=== PATIENT | female | born 1965 | race Caucasian/White ===

== ENCOUNTER 2019-10-11 09:44 | Inpatient (IN) | payer OTHER ==
[2019-10-11] MEDS ORDERED: Fentanyl 100 MCG/2 ML VIAL ONE ×2 (10:29→12:48)
[2019-10-11] MEDS ORDERED: Midazolam HCl 2 mg/2 ml Vial ONE (10:29)
[2019-10-11] MEDS ORDERED: Lidocaine 1% (PF) 30 ML VIAL ONE (10:29)
[2019-10-11] MEDS ORDERED: HYDROcodone/Acetaminophen 10/325 mg Tablet PO PRN ×2 (11:57)
[2019-10-11] MEDS ORDERED: traMADol HCl 50 MG TAB PO PRN ×3 (11:57→13:01)
[2019-10-11] MEDS ORDERED: Promethazine HCl 25 MG/ML VIAL IM PRN ×3 (11:57→16:55)
[2019-10-11] MEDS ORDERED: Zolpidem Tartrate 5 MG TAB PO PRN (11:57)
[2019-10-11] MEDS ORDERED: Ketorolac Tromethamine 30 MG/ML VIAL IVP PRN (11:57)
[2019-10-11] MEDS ORDERED: Ropivacaine 0.2% 550 ML 550 ML NERVE BLCK SCH (11:57)
[2019-10-11] MEDS ORDERED: Ondansetron PF 4 MG/2 ML Vial IVP PRN (11:57)
[2019-10-11] MEDS ORDERED: Acetaminophen 325 MG TAB PO PRN (11:57)
[2019-10-11] MEDS ORDERED: Fentanyl 100 MCG/2 ML VIAL IV PRN (11:58)
[2019-10-11] MEDS ORDERED: Bupivacaine PF 0.5% 30 ML VIAL ONE (12:16)
[2019-10-11] MEDS ORDERED: Betamet Acet/Betamet Na Ph 30 MG/5 ML VIAL ONE (12:16)
[2019-10-11] MEDS ORDERED: Bacitracin Zinc Ointment 30 gm TUBE ONE (12:16)
[2019-10-11] MEDS ORDERED: HYDROcodone/Acetaminophen 5/325 mg Tablet PO PRN (13:01)
[2019-10-11] MEDS ORDERED: Ondansetron PF 4 MG/2 ML Vial IV PRN (13:01)
[2019-10-11] MEDS ORDERED: Morphine 2 MG/ML SYRINGE SLOW IVP PRN (13:01)
[2019-10-11] MEDS ORDERED: Meperidine HCl/PF 25 MG/ML VIAL IM PRN (13:05)
[2019-10-11] MEDS ORDERED: TETANUS AND DIPHTHERIA TOX/PF 0.5 ML DISP.SYRIN IM SCH (13:15)
[2019-10-11] MEDS ORDERED: Communication Order-Pharmacy FS SCH (13:15)
[2019-10-11] MEDS ORDERED: Thrombin 5000 UNITS/5 ML VIAL ONE (14:31)
[2019-10-11] MEDS ORDERED: Dexamethasone 20 MG/5 ML VIAL ONE (15:12)
[2019-10-11] MEDS ORDERED: PROPOFOL 200 MG/20 ML VIAL ONE (15:12)
[2019-10-11] MEDS ORDERED: EPHEDRINE 25 MG/5 ML SYRINGE ONE (15:12)
[2019-10-11] MEDS ORDERED: Ondansetron PF 4 MG/2 ML Vial ONE (15:12)
[2019-10-11] MEDS ORDERED: Lidocaine 1% PF 5 ML VIAL ONE (15:12)
[2019-10-11] MEDS ORDERED: Ropivacaine 0.5% HCl/PF (150 MG/30 ML VIAL) ONE (15:12)
[2019-10-11] MEDS ORDERED: Ropivacaine 0.2% HCl/PF (40 MG/20 ML VIAL) ONE (15:12)
[2019-10-11] MEDS ORDERED: Lidocaine 0.5%/Epinephrine 1:200,000 50 ml Vial ONE (15:36)
[2019-10-11] MEDS ORDERED: Promethazine HCl 25 MG/ML VIAL SLOW IVP PRN (16:55)
[2019-10-11] MEDS ORDERED: HYDROmorphone 2 MG/ML VIAL SLOW IVP PRN (16:55)
[2019-10-11] MEDS ORDERED: Meperidine HCl/PF 25 MG/ML VIAL SLOW IVP PRN (16:55)
[2019-10-11] MEDS ORDERED: Ondansetron HCl/PF 4 MG/2 ML Vial IVP PRN (16:55)
[2019-10-11] MEDS ORDERED: PACU-Morphine 4MG/ML VIAL SLOW IVP PRN (16:55)
[2019-10-11] MEDS ORDERED: Morphine Sulfate 2 MG/ML SYRINGE SLOW IVP PRN (16:55)
[2019-10-11] MEDS ORDERED: Ketorolac Tromethamine 30 MG/ML VIAL ONE (17:37)
--- NOTE | 2019-10-11 18:33 | RAD ---
LEFT WRIST THREE VIEWS: 10/11/19 HISTORY: ORIF left wrist. FINDINGS/IMPRESSION: Two spot fluoroscopic intraoperative images of the left wrist demonstrate internal fixation of the di stal radial fracture with plate and screws. POS: [facility]
[2019-10-11] MEDS: Aspirin 81 mg Enteric Coated Tablet PO SCH (20:34)
[2019-10-11] MEDS: Ketorolac Tromethamine 30 MG/ML VIAL IVP PRN (20:40)
[2019-10-11] MEDS: Sodium Chloride 0.9% 1,000 ML IV SCH (20:45)
[2019-10-11 20:56] VITALS: BMI 22.5
[2019-10-11] MEDS: Sodium Chloride 0.9% 100 ML IV SCH ×2 (22:44→22:45)
[2019-10-12] MEDS: Vancomycin HCl 750 MG in Sodium Chloride 0.9% 250 ML 250 ML IVPB SCH ×2 (01:07→13:32)
[2019-10-12] MEDS: Sodium Chloride 0.9% 1,000 ML IV SCH ×2 (05:43→18:04)
[2019-10-12] MEDS: Aspirin 81 mg Enteric Coated Tablet PO SCH (09:00)
[2019-10-12] MEDS: Ketorolac Tromethamine 30 MG/ML VIAL IVP PRN (11:36)
[2019-10-12 15:17] VITALS: BP 101/65; TEMP 98.8
--- NOTE | 2019-10-14 12:05 | OP ---
DATE OF PROCEDURE: 10/11/2019 PREOPERATIVE DIAGNOSIS: 1. 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 2. Carpal tunnel syndrome. PROCEDURE PERFORMED: 1. Left median nerve neuroplasty at the wrist/carpal tunnel release. 2. Left distal radius fracture osteotomy with bone grafting. 3. Open reduction and internal fixation, bone graft from the dorsal approach and internal fixation from the palmar approach with volar plate, Synthes low-profile distal radius plate. 4. Major bone graft harvest from the iliac crest, obviously lateral left. FINDINGS: Dorsal angulation of +12 degrees, corrected to a -10 degrees tilt, which is very near the 12 degrees on the opposite side. The wrist went from radius neutral to 2 mm radial proximal. We also found that the fracture had healed over the 8 weeks and had to do an osteotomy through the old scar, but it was completely healed malunion. DESCRIPTION OF PROCEDURE: After successful general endotracheal anesthesia, she had the limb prepped and draped. The patient had the C-arm brought to the field. We confirmed after prepping and draping that was correct side. She had a block as well. Realizing that the dorsal approach would be best for correction, we then made a zigzag incision, centered over the wrist, 3rd and 4th dorsal compartment, spread these, found Shey's tubercle and made ulnar small open to retinaculum. Then, we found the fracture both clinically and radiographically. Using radiographic guidance, we then placed K-wire parallel to the joint, and we placed one perpendicular to the surface of the radius with another spread to perform a saw manipulation as well as to apply a small Synthes external fixator. We made the cut and then we distracted the dorsal side more than the palmar side, never cut it through the dorsal side with the saw, I was using an osteotome to crack the palmar surface. Once we had done this, we then were able to make the appropriate angular correction, verified by the radiographically and clinically by the K-wire parallel to the joint, now becoming parallel and somewhat overcorrected in terms of parallel to the sagittal plane to the portion of the shaft. We then placed external fixator bar, maintaining the site, and before we tight external fix, we used a small hand-held distraction device. Once we had locked this in place, we made appropriate measurements, knew the thickness would have to be approximately 12 mm on the dorsal side down to a point and at 12 mm of depth. We then packed this with normal saline soaked gauze and focused our attention on the pelvis. We made an incision that was 5 cm long along the iliac crest, 1 cm off the actual peak of the crest, carried through skin and subcutaneous tissue and then dissected to the pubic crest and opened the fascia approximately 4 cm. We avoided the distal 15 mm of the crest (most dorsal portion), so was not into the notch. We removed the fascia and soft tissue from the crest on both sides to the depth of 12 to 15 mm, placed 2 Cathleen retractors inside to protect Stewart elevator to finish the elevation and made the appropriate saw cut off the crest. We took two pieces, one because of the width of the crest was not mathematics with the radius. Once we had done this, we took a small amount of cancellous bone and then placed a thrombin-soaked Gelfoam in the wound and packed it with sterile lap sponge. We removed the lamina merchant miller from the external fixator area, tightening the external fixator at the dorsal wrist, we modified the bone graft to fit and then slowly capped it in place. Once it was in place, we removed the external fixator and took radiographs. It was an excellent correction as described in the postoperative. We then had to place a bone graft for either side of this cortical cancellous and we split the other piece to do that. I put some cortical bone from cancellous bone into filling the defect and then pinned this before removed the external fixator with 2 K-wires from the radial styloid across the fracture site and proximal across the radius. This was very stable, removed the external fixator and its bars. We then turned attention to the palmar side. We then performed a carpal tunnel release because the patient had carpal tunnel syndrome through standard 2.5 cm incision and did not visualize it did not cause damage to the to the distal type I takeoff the motor branch and did not damage the digital branches, but performed the release of the transcarpal ligament through this incision. We then made a zigzag incision, carried through skin and subcutaneous tissue along the flexor carpi radialis, entered the interval between the flexor carpi radialis and the radial artery to approach the palmar distal radius. We then made an L-shaped release of the pronator quadratus, removed soft tissue along the bone to visualize only bone, but stayed extra-articular. We then brought a Synthes low-profile variable angle distal radius plate, put that on the radius, pinned in appropriate position and realized it has excellent position for screw fixation. The fracture was already anatomically reduced and held with K-wires from the dorsal side. We then placed the distal row 1st, all 4 screws with 2 be in the cortical and 2 be in cancellous. Then, we removed the K-wire proximally and removed, and at the same time we drilled the 2/7th first most proximal screw, we loosened the K-wires to obtain a slightly 1-2 more degrees of tilt given this to final 12 degrees. We placed the final 2 screws proximally, checked the radiographs and saw that all screws were in good position. No violation of the joint. No violation of cortex dorsally. We could actually see the cortex dorsally through the 1st incision. We irrigated this wound and then deflated the tourniquet. We closed the pronator quadratus with 0 Vicryl, we then closed the epidermis and dermis in one layer for the remaining portion of the distal radius and the carpal tunnel incision using 4-0 nylon interrupted mattress on the carpal tunnel and a combination of 4-0 and 3-0 nylon on the radial incision. We turned attention to the dorsal incision and closed this by repairing the retinaculum with a 2-0 Vicryl for approximately 7 mm and this was the only portion we violated. We irrigated, obtained hemostasis, checked and there were no screws penetrating the cortex, so we closed the deep dermis with a running 4-0 Monocryl and 4-0 nylon interrupted mattress for the epidermis skin closure. Bacitracin, Adaptic, 4x4, and Kerlix were placed on this upper extremity dressing. We turned attention to the pelvis where we removed the thrombin Gelfoam, and it was immaculate hemostasis. We placed a drain through a separate stab wound at the fascia slightly distal and lateral. I closed the fascia with a running #1 Vicryl. We closed the subcutaneous tissue with a running interrupted 3-0 Monocryl and we used 3-0 nylon cut short for closing the epidermis. We then placed bacitracin, Adaptic 4x4, small half of an ABD and then Tegaderm appropriate size for the dressing. The drain gave excellent suction once inflated. We protected the drain with a heavy tape to the upper thigh and then we placed a sugar-tong splint with excellent padding on the forearm and the proximal elbow and distal forearm. The patient then left the operating room without evidence of anesthetic or operative complication. Job ID: [id number]
== END 2019-10-12 18:00 | disposition home or self-care (01) | DRG 41 ==
LOC: SDC 09:44 → SURG A 13:05
PROVIDERS: ADMIT Orthopaedic Surgery Hand Surgery; ATTEND Orthopaedic Surgery Hand Surgery
PROC: 01N50ZZ Release Median Nerve, Open Approach (ICD-10-PCS; principal; 2019-10-11)
PROC: 0PSJ04Z Reposition Left Radius with Internal Fixation Device, Open Approach (ICD-10-PCS; 2019-10-11)
PROC: 0PUJ07Z Supplement Left Radius with Autologous Tissue Substitute, Open Approach (ICD-10-PCS; 2019-10-11)
PROC: 0QB50ZZ Excision of Left Acetabulum, Open Approach (ICD-10-PCS; 2019-10-11)
PROC: 0QB30ZZ Excision of Left Pelvic Bone, Open Approach (ICD-10-PCS; 2019-10-11)
DX: G56.02 Carpal tunnel syndrome, left upper limb (principal); S52.592A Other fractures of lower end of left radius, initial encounter for closed fracture; Z11.59 Encounter for screening for other viral diseases; X58.XXXA Exposure to other specified factors, initial encounter
CPT/HCPCS: 36415; 76000; 82565; 85025; 87635; A4306; C1713; J0702; J1100; J1885; J2001; J2250; J2270; J2405; J2704; J2795; J3010; J3370; J7050; S0020; U0003